=== PATIENT | male | born 1950 | race Caucasian/White ===

== ENCOUNTER 2016-08-21 05:57 | Day surgery (SDC) | payer OTHER ==
[~2016-08-21 05:57] MED LIST: PRILOSEC OTC20 M1 PO
[2016-09-25] MEDS ORDERED: REGLAN10 M2 PO (14:25)
[2016-09-25] MEDS ORDERED: STOOL SOFTENER PO (14:26)
[2016-09-25] MEDS ORDERED: ZOFRAN8 M1 PO (14:26)
== END 2016-08-21 10:45 ==
LOC: SRG 05:57 → SHSB 05:59 → PACU 09:01 → SHSB 09:34
PROC: 0CBM8ZX Excision of Pharynx, Via Natural or Artificial Opening Endoscopic, Diagnostic (ICD-10-PCS; principal; 2016-08-21)
DX: C01 Malignant neoplasm of base of tongue (principal); F33.9 Major depressive disorder, recurrent, unspecified; K21.9 Gastro-esophageal reflux disease without esophagitis; Z79.899 Other long term (current) drug therapy; Z87.442 Personal history of urinary calculi; Z80.0 Family history of malignant neoplasm of digestive organs; Z98.890 Other specified postprocedural states
CPT/HCPCS: J0171; J2405; J3010; J7030

== ENCOUNTER 2016-09-27 10:13 | Day surgery (SDC) | payer OTHER ==
[~2016-09-27 10:13] MED LIST changes: +REGLAN10 M2 PO; +STOOL SOFTENER PO; +ZOFRAN8 M1 PO
[2016-09-27 11:22] LABS: PROTHROMBIN TIME 11.6 SECONDS (9.0-13.6)
== END 2016-09-27 15:00 ==
LOC: RADSP 10:13 → SHSC 10:20
PROVIDERS: Radiology Radiation Oncology
PROC: 0DH63UZ Insertion of Feeding Device into Stomach, Percutaneous Approach (ICD-10-PCS; principal; 2016-09-27)
DX: C01 Malignant neoplasm of base of tongue (principal); K21.9 Gastro-esophageal reflux disease without esophagitis; F41.9 Anxiety disorder, unspecified; Z79.899 Other long term (current) drug therapy; Z87.442 Personal history of urinary calculi; Z98.890 Other specified postprocedural states
CPT/HCPCS: C1725; C1769; J0690; J1610; J2250; J3010; J7030; Q9967

== ENCOUNTER 2016-10-05 | Emergency (ER) | payer OTHER ==
[2016-10-05] MEDS ORDERED: ATIVAN1 M2 PO (18:13)
[2016-10-05] MEDS ORDERED: TRANSDERM-SCOP1 EACH TD (18:13)
[2016-10-05] MEDS ORDERED: DEXAMETHASONE4 M1 PO (18:14)
[2016-10-05] MEDS ORDERED: COMPAZINE10 MG PO (18:14)
[2016-10-05] MEDS ORDERED: NORCO 5-325 TA1 EACH PO (18:15)
[2016-10-05] MEDS ORDERED: PRILOSEC OTC20 M1 PO (18:59)
[2016-10-06] MEDS ORDERED: MAALOX MAXIMUM355 M1 PO (15:25)
[2016-10-06] MEDS ORDERED: PEPCID20 M1 PO (15:26)
[2016-10-06] MEDS ORDERED: DURAGESIC1 EAC1 TOP (15:28)
[2016-10-06] MEDS ORDERED: CEFDINIR250 MG/51 (15:56)
== END 2016-10-05 21:15 ==
DX: K21.9 Gastro-esophageal reflux disease without esophagitis (principal); C06.9 Malignant neoplasm of mouth, unspecified; Z79.899 Other long term (current) drug therapy

== ENCOUNTER 2016-10-06 14:48 | Inpatient (IN) | payer OTHER ==
[~2016-10-06 14:48] MED LIST changes: +ATIVAN1 M2 PO; +COMPAZINE10 MG PO; +DEXAMETHASONE4 M1 PO; +NORCO 5-325 TA1 EACH PO; +TRANSDERM-SCOP1 EACH TD
[2016-10-06] MEDS ORDERED: MAALOX MAXIMUM355 M1 PO (15:25)
[2016-10-06] MEDS ORDERED: PEPCID20 M1 PO (15:26)
[2016-10-06] MEDS ORDERED: DURAGESIC1 EAC1 TOP (15:28)
[2016-10-06] MEDS ORDERED: CEFDINIR250 MG/51 (15:56)
[2016-10-06 17:28] LABS: BASO % 0.6 % (0-2); EOS % 1.9 % (0-7); EOSINOPHIL ABSOLUTE COUNT 0.1 tho/cmm (0.0-0.7); HCT-HEMATOCRIT 31.4 % (36.0-53.5); HGB-HEMOGLOBIN 10.8 gm/dl (13.5-17.0); IMMATURE GRANULOCYTES ABSOLUTE 0.13 tho/cmm (0-0.03); IMMATURE GRANULOCYTES PERCENT 3.6 % (0-0.3); LYMPH % 13.6 % (20-45); LYMPH ABSOLUTE COUNT 0.5 tho/cmm (0.8-4.5); MCHC MEAN CORPUSCULAR HGB CONC 34.4 % (32.0-36.0); MCV (MEAN CELL VOLUME) 87.2 fl (82.0-96.0); MEAN PLATELET VOLUME 8.9 cmc (9.4-12.4); MONO % 16.4 % (0-12); MONOCYTE ABSOLUTE COUNT 0.6 tho/cmm (0.0-1.2); NEUTROPHIL ABSOLUTE COUNT 2.3 tho/cmm (1.6-8.0); NEUTROPHIL-AUTOMATED 2.3 tho/cmm (1.6-8.0); NEUTROPHILS % 63.9 % (40-80); PLATELET COUNT 194 tho/cmm (150-450); RED CELL DISTRIBUTION WIDTH 13.6 % (12.4-16.4); WHITE BLOOD COUNT 3.6 tho/cmm (4.0-10.0)
[2016-10-06 17:32] LABS: PROTHROMBIN TIME 11.5 SECONDS (9.0-13.6)
[2016-10-06 17:56] LABS: ALB/GLOB RATIO 0.8 (0.8-2.0); ALBUMIN 2.9 g/dl (3.5-5.0); ALKALINE PHOSPHATASE 89 U/L (33-138); AST/SGOT 33 U/L (10-40); BILIRUBIN,TOTAL 0.3 mg/dl (0.0-1.5); BLOOD UREA NITROGEN 23 mg/dl (6-24); CALCIUM 8.4 mg/dl (8.5-10.5); CARBON DIOXIDE-VENOUS 25 mmol/L (22-32); CHLORIDE 106 mmol/l (96-110); CREATININE 1.32 mg/dl (0.60-1.30); GLUCOSE 86 mg/dL (70-110); SODIUM 141 mmol/L (135-145); eGFR VALUE FOR BLACK 66 mL/Min
[2016-10-06 18:02] LABS: ALT/SGPT 46 U/L (12-78); ANION GAP 14 mmol/L (0-20); POTASSIUM 4.4 mmol/L (3.7-5.1)
[2016-10-07 05:49] LABS: BASO % 0.5 % (0-2); EOS % 1.9 % (0-7); EOSINOPHIL ABSOLUTE COUNT 0.1 tho/cmm (0.0-0.7); HCT-HEMATOCRIT 30.2 % (36.0-53.5); HGB-HEMOGLOBIN 10.3 gm/dl (13.5-17.0); IMMATURE GRANULOCYTES ABSOLUTE 0.16 tho/cmm (0-0.03); IMMATURE GRANULOCYTES PERCENT 4.2 % (0-0.3); LYMPH % 10.6 % (20-45); LYMPH ABSOLUTE COUNT 0.4 tho/cmm (0.8-4.5); MCH (MEAN CORPUSCULAR HGB) 29.8 pg (28.0-32.0); MCHC MEAN CORPUSCULAR HGB CONC 34.1 % (32.0-36.0); MCV (MEAN CELL VOLUME) 87.3 fl (82.0-96.0); MEAN PLATELET VOLUME 8.9 cmc (9.4-12.4); MONO % 13.5 % (0-12); MONOCYTE ABSOLUTE COUNT 0.5 tho/cmm (0.0-1.2); NEUTROPHIL ABSOLUTE COUNT 2.6 tho/cmm (1.6-8.0); NEUTROPHIL-AUTOMATED 2.6 tho/cmm (1.6-8.0); NEUTROPHILS % 69.3 % (40-80); PLATELET COUNT 176 tho/cmm (150-450); RED BLOOD COUNT 3.46 mil/cmm (4.40-5.70); RED CELL DISTRIBUTION WIDTH 13.6 % (12.4-16.4); WHITE BLOOD COUNT 3.8 tho/cmm (4.0-10.0)
[2016-10-07 06:03] LABS: ANION GAP 13 mmol/L (0-20); BLOOD UREA NITROGEN 18 mg/dl (6-24); CALCIUM 8.2 mg/dl (8.5-10.5); CARBON DIOXIDE-VENOUS 24 mmol/L (22-32); CHLORIDE 106 mmol/l (96-110); CREATININE 1.15 mg/dl (0.60-1.30); GLUCOSE 86 mg/dL (70-110); POTASSIUM 4.4 mmol/L (3.7-5.1); SODIUM 139 mmol/L (135-145); eGFR VALUE FOR BLACK 78 mL/Min
[2016-10-08 05:39] LABS: HCT-HEMATOCRIT 31.4 % (36.0-53.5); HGB-HEMOGLOBIN 10.7 gm/dl (13.5-17.0); MCH (MEAN CORPUSCULAR HGB) 29.6 pg (28.0-32.0); MCHC MEAN CORPUSCULAR HGB CONC 34.1 % (32.0-36.0); MEAN PLATELET VOLUME 8.9 cmc (9.4-12.4); PLATELET COUNT 171 tho/cmm (150-450); RED BLOOD COUNT 3.61 mil/cmm (4.40-5.70); RED CELL DISTRIBUTION WIDTH 13.4 % (12.4-16.4); WHITE BLOOD COUNT 4.5 tho/cmm (4.0-10.0)
[2016-10-08 05:47] LABS: ANION GAP 12 mmol/L (0-20); BLOOD UREA NITROGEN 14 mg/dl (6-24); CALCIUM 8.5 mg/dl (8.5-10.5); CARBON DIOXIDE-VENOUS 25 mmol/L (22-32); CHLORIDE 104 mmol/l (96-110); CREATININE 1.21 mg/dl (0.60-1.30); GLUCOSE 83 mg/dL (70-110); POTASSIUM 4.2 mmol/L (3.7-5.1); SODIUM 137 mmol/L (135-145); eGFR VALUE FOR BLACK 73 mL/Min
[2016-10-08 05:53] LABS: BAND % 25 % (0-20); BAND ABSOLUTE COUNT 1.1 tho/cmm (0-2.0); WBC MORPHOLOGY TOXIC GRANULATION
== END 2016-10-08 14:13 | DRG 864 ==
LOC: 5WE 14:48
PROVIDERS: ADMIT Internal Medicine Medical Oncology
DX: R50.9 Fever, unspecified (principal); C01 Malignant neoplasm of base of tongue; K94.22 Gastrostomy infection; L03.311 Cellulitis of abdominal wall; E86.0 Dehydration; D64.9 Anemia, unspecified; K21.9 Gastro-esophageal reflux disease without esophagitis; R11.2 Nausea with vomiting, unspecified
CPT/HCPCS: C9113; J0692; J2405; J3370; J7030

== ENCOUNTER 2016-11-15 04:48 | Observation (INO) | payer OTHER ==
[~2016-11-15 04:48] MED LIST changes: +CEFDINIR250 MG/51; +DURAGESIC1 EAC1 TOP; +MAALOX MAXIMUM355 M1 PO; +PEPCID20 M1 PO
[2016-11-15 05:36] LABS: BASO % 0.5 % (0-2); EOS % 1.3 % (0-7); EOSINOPHIL ABSOLUTE COUNT 0.1 tho/cmm (0.0-0.7); HCT-HEMATOCRIT 32.6 % (36.0-53.5); HGB-HEMOGLOBIN 11.3 gm/dl (13.5-17.0); IMMATURE GRANULOCYTES ABSOLUTE 0.02 tho/cmm (0-0.03); IMMATURE GRANULOCYTES PERCENT 0.4 % (0-0.3); LYMPH % 9.4 % (20-45); LYMPH ABSOLUTE COUNT 0.5 tho/cmm (0.8-4.5); MCH (MEAN CORPUSCULAR HGB) 30.7 pg (28.0-32.0); MCHC MEAN CORPUSCULAR HGB CONC 34.7 % (32.0-36.0); MCV (MEAN CELL VOLUME) 88.6 fl (82.0-96.0); MEAN PLATELET VOLUME 9.2 cmc (9.4-12.4); MONO % 8.8 % (0-12); MONOCYTE ABSOLUTE COUNT 0.5 tho/cmm (0.0-1.2); NEUTROPHIL ABSOLUTE COUNT 4.4 tho/cmm (1.6-8.0); NEUTROPHIL-AUTOMATED 4.4 tho/cmm (1.6-8.0); NEUTROPHILS % 79.6 % (40-80); PLATELET COUNT 272 tho/cmm (150-450); RED BLOOD COUNT 3.68 mil/cmm (4.40-5.70); RED CELL DISTRIBUTION WIDTH 14.1 % (12.4-16.4); WHITE BLOOD COUNT 5.6 tho/cmm (4.0-10.0)
[2016-11-15 05:46] LABS: KETONE-BETA (WHOLE BLOOD) 0.3 mmol/L (0.0-0.6)
[2016-11-15 06:04] LABS: ALB/GLOB RATIO 0.9 (0.8-2.0); ALBUMIN 3.4 g/dl (3.5-5.0); ALKALINE PHOSPHATASE 87 U/L (33-138); ANION GAP 13 mmol/L (0-20); AST/SGOT 17 U/L (10-40); BILIRUBIN,TOTAL 0.9 mg/dl (0.0-1.5); BLOOD UREA NITROGEN 17 mg/dl (6-24); CALCIUM 9.2 mg/dl (8.5-10.5); CARBON DIOXIDE-VENOUS 22 mmol/L (22-32); CHLORIDE 107 mmol/l (96-110); CREATININE 1.31 mg/dl (0.60-1.30); GLUCOSE 107 mg/dL (70-110); LIPASE 151 U/L (73-393); POTASSIUM 3.8 mmol/L (3.7-5.1); SODIUM 138 mmol/L (135-145); eGFR VALUE FOR BLACK 66 mL/Min
[2016-11-15 06:12] LABS: ALT/SGPT 33 U/L (12-78)
[2016-11-16 05:25] LABS: ANION GAP 13 mmol/L (0-20); BLOOD UREA NITROGEN 11 mg/dl (6-24); CALCIUM 8.5 mg/dl (8.5-10.5); CARBON DIOXIDE-VENOUS 21 mmol/L (22-32); CHLORIDE 109 mmol/l (96-110); CREATININE 1.07 mg/dl (0.60-1.30); GLUCOSE 88 mg/dL (70-110); POTASSIUM 4.2 mmol/L (3.7-5.1); SODIUM 139 mmol/L (135-145); eGFR VALUE FOR BLACK 85 mL/Min
[2016-11-16 06:21] LABS: BASO % 0.4 % (0-2); EOS % 2.6 % (0-7); EOSINOPHIL ABSOLUTE COUNT 0.1 tho/cmm (0.0-0.7); HCT-HEMATOCRIT 29.6 % (36.0-53.5); HGB-HEMOGLOBIN 10.1 gm/dl (13.5-17.0); IMMATURE GRANULOCYTES ABSOLUTE 0.04 tho/cmm (0-0.03); IMMATURE GRANULOCYTES PERCENT 0.8 % (0-0.3); LYMPH % 12.8 % (20-45); LYMPH ABSOLUTE COUNT 0.7 tho/cmm (0.8-4.5); MCH (MEAN CORPUSCULAR HGB) 30.6 pg (28.0-32.0); MCHC MEAN CORPUSCULAR HGB CONC 34.1 % (32.0-36.0); MCV (MEAN CELL VOLUME) 89.7 fl (82.0-96.0); MEAN PLATELET VOLUME 9.7 cmc (9.4-12.4); MONOCYTE ABSOLUTE COUNT 0.6 tho/cmm (0.0-1.2); NEUTROPHIL ABSOLUTE COUNT 3.7 tho/cmm (1.6-8.0); NEUTROPHIL-AUTOMATED 3.7 tho/cmm (1.6-8.0); NEUTROPHILS % 72.4 % (40-80); PLATELET COUNT 240 tho/cmm (150-450); RED CELL DISTRIBUTION WIDTH 14.3 % (12.4-16.4); WHITE BLOOD COUNT 5.1 tho/cmm (4.0-10.0)
== END 2016-11-16 16:00 ==
LOC: EDMED 04:48 → EMR2 07:42 → 5WF 09:50
PROVIDERS: Emergency Medicine; ADMIT Internal Medicine
DX: R11.2 Nausea with vomiting, unspecified (principal); R13.10 Dysphagia, unspecified; N17.9 Acute kidney failure, unspecified; F41.8 Other specified anxiety disorders; C01 Malignant neoplasm of base of tongue; K21.9 Gastro-esophageal reflux disease without esophagitis; Z79.899 Other long term (current) drug therapy; Z88.1 Allergy status to other antibiotic agents; Z85.810 Personal history of malignant neoplasm of tongue; Z92.3 Personal history of irradiation; Z87.442 Personal history of urinary calculi; Z98.890 Other specified postprocedural states
CPT/HCPCS: C9113; G0378; J1170; J2060; J2405; J2765; J7030; Q9967